=== PATIENT | female | born 1950 | race Caucasian/White ===

== ENCOUNTER → 2018-02-07 | Outpatient (CLI) | payer MEDICARE, BC ==
[2015-10-04 11:09] VITALS: BP 167/91
[~2018-02-07] MED LIST: ASPIRIN E.C. 8181 MG PO; CEPHALEXIN500 M2 PO; HCTZ 25MG25 MG PO; MULTI-VITAMIN1 EACH PO; NORCO 325 MG-51 TAB PO; SIMVASTATIN40 M1 PO
== END ==
LOC: MAMMO 13:00
DX: Z12.31 Encounter for screening mammogram for malignant neoplasm of breast (principal)

== ENCOUNTER → 2020-05-12 | Outpatient (CLI) | payer MEDICARE, BC ==
[2015-10-04 11:09] VITALS: BP 167/91
== END ==
LOC: MAMMO 09:14
DX: Z12.31 Encounter for screening mammogram for malignant neoplasm of breast (principal)

== ENCOUNTER → 2021-07-14 | Outpatient (CLI) | payer MEDICARE, BC | LOC: MAMMO 13:37 | DX: Z12.31 Encounter for screening mammogram for malignant neoplasm of breast (principal) ==

== ENCOUNTER → 2021-11-09 | Outpatient (CLI) | payer MEDICARE, BC | LOC: RAD 07:45 | DX: M53.3 Sacrococcygeal disorders, not elsewhere classified (principal); M54.41 Lumbago with sciatica, right side ==

== ENCOUNTER → 2022-05-25 | Outpatient (CLI) | payer MEDICARE, BC | LOC: PT 08:43 | DX: M17.12 Unilateral primary osteoarthritis, left knee (principal) ==

== ENCOUNTER → 2022-08-25 | Outpatient (CLI) | payer MEDICARE, BC | LOC: MAMMO 07:45 | DX: Z12.31 Encounter for screening mammogram for malignant neoplasm of breast (principal); Z78.0 Asymptomatic menopausal state ==

== ENCOUNTER → 2022-08-25 | Outpatient (CLI) | payer MEDICARE, BC | LOC: RAD 07:57 → MAMMO 08:30 → RAD 08:30 | DX: Z12.31 Encounter for screening mammogram for malignant neoplasm of breast (principal); Z13.820 Encounter for screening for osteoporosis ==

== ENCOUNTER → 2023-09-14 | Outpatient (CLI) | payer MEDICARE, BC | LOC: MAMMO 15:30 | DX: Z12.31 Encounter for screening mammogram for malignant neoplasm of breast (principal) ==

== ENCOUNTER 2024-03-05 17:00 | Emergency (ER) | payer MEDICARE, BC ==
[~2024-03-05] VITALS: Ht 162.6 cm; Wt 100.1 kg
[2024-03-05] MEDS ORDERED: CETIRIZINE HCL10 MG PO (17:26)
[2024-03-05] MEDS ORDERED: FLUTICASON0.05 MG/Ac NS (17:26)
[2024-03-05] MEDS ORDERED: LISINOPRIL30 MG PO (17:26)
[2024-03-05] MEDS ORDERED: PREGABALIN150 MG PO (17:27)
[2024-03-05] MEDS ORDERED: CALCIUM PO (17:28)
[2024-03-05 17:47] LABS: BASO # 0.05 K/mm3 (0.02-0.10); EOS # 0.25 K/mm3 (0.04-0.40); EOS % 4.3 % (1.0-5.0); HEMATOCRIT 37.6 % (37.0-47.0); HEMOGLOBIN 12.1 g/dL (12.5-16.0); MEAN CELL VOLUME 94 fl (78-100); MEAN CORPUSCULAR HEMOGLOBIN 30 pg (27-31); MEAN CORPUSCULAR HGB CONC 32 g/dL (33-37); MEAN PLATELET VOLUME 9.5 fl (7.4-10.4); MONO # 0.56 K/mm3 (0.20-0.80); NEU # 3.19 K/mm3 (1.40-6.50); PLATELET COUNT 282 K/mm3 (130-400); RED BLOOD COUNT 4.02 M/mm3 (4.10-5.30); WHITE BLOOD COUNT 5.9 K/mm3 (4.8-10.8)
[2024-03-05 17:55] LABS: ALBUMIN 3.9 g/dL (3.4-4.8); SODIUM 140 mmol/L (136-145)
[2024-03-05 17:56] LABS: CALCIUM 9.8 mg/dL (8.3-10.5)
[2024-03-05 17:57] LABS: GLUCOSE 102 mg/dL (65-105); TOTAL PROTEIN 7.6 g/dL (6.2-8.1)
[2024-03-05 17:58] LABS: CARBON DIOXIDE 24 mmol/L (23-31)
[2024-03-05 17:59] LABS: TOTAL BILIRUBIN 0.4 mg/dL (0.2-1.2)
[2024-03-05 18:03] LABS: AST-SGOT 17 U/L (5-34)
[2024-03-05 18:04] LABS: ALT/SGPT 12 U/L (0-55)
[2024-03-05 18:10] LABS: PROTHROMBIN TIME 10.3 SECONDS (9.0-12.0); TROPONIN-I < 0.030 ng/mL (0.00-0.033)
[2024-03-05] MEDS ORDERED: Iohexol 350 - 100 ML VIAL IV ONE (18:41)
[2024-03-05 19:41] VITALS: BP 148/90
== END 2024-03-05 19:41 | disposition home or self-care (01) ==
LOC: ED 17:00
PROVIDERS: Physician Assistant
DX: R06.02 Shortness of breath (principal)
CPT/HCPCS: Q9967

== ENCOUNTER → 2024-05-30 | Day surgery (SDC) | payer MEDICARE, BC ==
[~2024-05-30] MED LIST changes: +Balanced Salt Ophth Irrig 15 ML BOTTLE *BULK OP SCH; +CALCIUM PO; +CETIRIZINE HCL10 MG PO; +Cyclopentolate 2% Ophth Soln 1 BOTTLE *BULK OP SCH; +EPINEPHrine 1 MG/ML (1:1000) 1 ML AMP IR SCH; +FLUTICASON0.05 MG/Ac NS; +Ketorolac 0.5% Ophth Soln 5 ML Bottle *BULK OP SCH; +LISINOPRIL30 MG PO; +Midazolam 2 MG/2 ML VIAL IV ONE; +PREGABALIN150 MG PO; +Phenylephrine 10% Ophth Soln 5 ML BOTTLE *BULK OP SCH; +Polymyxin B Sulfate/Trimethoprim Ophth Soln 10 ML BOTTLE *BULK OP SCH; +Povidone Iodine 5% Ophth Soln 30 ML BOTTLE *BULK OP SCH; +Proparacaine 0.5% Ophth Soln 15 ML BOTTLE *BULK OP SCH; +Tropicamide 1% Ophth Soln Bottle *BULK OP SCH; +Trypan Blue 0.06% Ophth Soln 0.5 ML SYRINGE IO SCH
== END ==
LOC: MSO 08:49
DX: H25.12 Age-related nuclear cataract, left eye (principal); E66.9 Obesity, unspecified; Z79.82 Long term (current) use of aspirin
CPT/HCPCS: 00142; J0171; J2250; V2632

== ENCOUNTER → 2024-06-13 | Day surgery (SDC) | payer MEDICARE, BC ==
[~2024-06-13] MED LIST changes: +Trypan Blue 0.06% Ophth Soln 0.5 ML SYRINGE IO ONE; -Trypan Blue 0.06% Ophth Soln 0.5 ML SYRINGE IO SCH
== END | disposition home or self-care (01) ==
LOC: MSO 08:56
DX: H25.11 Age-related nuclear cataract, right eye (principal)
CPT/HCPCS: 00142; J0171; J2250; V2632